=== PATIENT | male | born 1950 | race Caucasian/White ===

== ENCOUNTER 2017-11-13 21:13 | Observation (INO) | payer OTHER, BC ==
--- NOTE | 2017-11-13 21:20 | EDPHY ---
H & P Source: Patient Exam Limitations: No limitations - Family History Significant Family History: No pertinent family hx Time Seen by Provider: 11/13/17 21:19 HPI/ROS: CHIEF COMPLAINT: Acute right flank pain HISTORY OF PRESENT ILLNESS: The patient presents to the ED with complaints of acute right flank pain, nausea and vomiting. The patient's symptoms began several hours prior to arrival. The patient does report a remote history of nephrolithiasis several decades ago. The patient does have a history of diabetes. The patient denies any recent travel, antibiotic use or surgery. He has a history of BPH. He has a history of an inguinal hernia surgery approximately a year ago. He has remote history of appendectomy. The patient denies any fever, cough or congestion. The patient is currently visiting from [place] of [place] on a business trip. REVIEW OF SYSTEMS: A comprehensive 10 point review of systems is otherwise negative aside from elements mentioned in the history of present illness. (Andrew Dennison) - Medical/Surgical History PMH: Past medical history: Enlarged prostate, diabetes, inguinal hernia, appendectomy (Andrew Dennison) - Physical Exam Exam: General Appearance: Alert, mild discomfort Eyes: Pupils equal and round no pallor or injection ENT, Mouth: Mucous membranes moist Respiratory: There are no retractions, lungs are clear to auscultation Cardiovascular: Regular rate and rhythm Gastrointestinal: Abdomen is soft and nontender, no masses, bowel sounds normal Back: Right CVA tenderness Neurological: 5/5 strength all 4 extremities Skin: Warm and dry, no rashes Musculoskeletal: Neck is supple nontender Extremities: symmetrical, full range of motion (Andrew Dennison) Constitutional: Initial Vital Signs Temperature (C) 36.5 C 11/13/17 21:30 Heart Rate 65 11/13/17 21:30 Respiratory Rate 18 11/13/17 21:30 Blood Pressure 157/108 H 11/13/17 21:30 O2 Sat (%) 94 11/13/17 21:30 O2 Delivery Mode Room Air Allergies/Adverse Reactions: iodine Allergy (Verified 11/13/17 21:39) shellfish derived [shrimp] Allergy (Verified 11/13/17 21:39) sunflower seed Allergy (Verified 11/13/17 21:39) Home Medications: Medication Instructions Recorded Lisa Allergy 11/13/17 Aspirin 11/13/17 Atorvastatin Calcium 11/13/17 Epipen 0.3 MG 11/13/17 FENOFIBRATE 11/13/17 Finasteride 11/13/17 Fluticasone Propionate 11/13/17 Januvia 100 MG (*) 11/13/17 Omeprazole 20 mg PO 11/13/17 Tamsulosin HCl 11/13/17 Telmisartan 11/13/17 Vitamin D2 11/13/17 metFORMIN HCL [Metformin HCl ER] 1,000 mg PO 11/13/17 Medical Decision Making - Diagnostics Imaging Results: Imaging Impressions Abdomen/Pelvis CT 11/13/17 21:23 Impression: 1. Nonobstructive left nephrolithiasis. 2. There is a 2 mm stone in the posterior right urinary bladder just beyond the UVJ, with evidence of recent passage and mild upstream ureteral dilatation/ pelvocaliectasis. 3. Small hiatal hernia. 4. Mild hepatomegaly with steatosis. 5. Mild uncomplicated sigmoid colon diverticulosis. Attention: This CT examination is specifically designed to evaluate patients who are clinically suspected of having acute obstructive uropathy. This examination does not use radiographic contrast, and as such, provides only a limited evaluation of the abdomen, pelvis, and retroperitoneum. If there is further clinical suspicion for pathological conditions other than obstructive uropathy, a complete CT evaluation of the abdomen and pelvis utilizing intravenous, oral, and rectal contrast should be considered. Findings were discussed with Andrew Dennison MD at 23:14, on 11/13/2017. ED Course/Re-evaluation: The patient presents the ED with acute right flank pain. The patient had an IV established. His i-STAT demonstrates a creatinine of 1.4. The patient received 30 mg of IV Toradol for presumed ureterolithiasis. The patient was taken for CT scan of the abdomen pelvis which demonstrates a 2 mm distal right ureteral stone with associated hydronephrosis. Re-evaluated the patient at 11:20 p.m.. He currently is complaining of 4/10 pain which is radiating to his right testicle now. The patient received Flomax and IV narcotic medications. Urinalysis is currently pending. The patient will be turned over to Dr. Magallanes at shift change pending reassessment. I am hopeful the patient will be able to be discharged back to his hotel room 1 3 achieve adequate analgesia. If not, the patient will be admitted to the hospital for observation. (Andrew Dennison) 0125: I did go re-evaluate the patient this time. He did vomit 1 time going to the bathroom. I have ordered him a 2nd L fluid, 6.25 mg IV Phenergan and 0.5 mg of IV Dilaudid for some ongoing pain. He does in fact have a kidney stone. He has not urinated. Will obtain a bladder scan to see how much urine he has. Additionally he is from out of town and does not live here given his ongoing pain, vomiting he will be admitted for IV hydration and symptom control and follow-up urinalysis. I will ask the hospitalist to admit him. The patient would prefer being admitted. 0133: spoke with Dr. Pressley agrees to admit. (Aniket Magallanes) Differential Diagnosis: Differential diagnosis considered includes nephrolithiasis, ureterolithiasis, pyelonephritis, renal failure, myofascial strain, abdominal aortic aneurysm ( Andrew Dennison) - Data Points Laboratory Results: Laboratory Results 11/13/17 21:00 11/13/17 21:00 11/13/17 11/13/17 11/13/17 21:32 21:00 21:00 WBC 6.82 10^3/uL 10^3/uL (3.80-9.50) RBC 5.65 10^6/uL 10^6/uL (4.40-6.38) Hgb 15.6 g/dL g/dL (13.7-17.5) POC Hgb 15.6 gm/dL gm/dL (13.7-17.5) Hct 45.5 % % (40.0-51.0) POC Hct 46 % % (40-51) MCV 80.5 fL L fL (81.5-99.8) MCH 27.6 pg L pg (27.9-34.1) MCHC 34.3 g/dL g/dL (32.4-36.7) RDW 13.1 % % (11.5-15.2) Plt Count 238 10^3/uL 10^3/uL (150-400) MPV 12.4 fL H fL (8.7-11.7) Neut % (Auto) 57.5 % % (39.3-74.2) Lymph % (Auto) 29.6 % % (15.0-45.0) [place] % (Auto) 9.5 % % (4.5-13.0) Eos % (Auto) 2.2 % % (0.6-7.6) Baso % (Auto) 0.9 % % (0.3-1.7) Nucleat RBC Rel Count 0.0 % % (0.0-0.2) Absolute Neuts (auto) 3.92 10^3/uL 10^3/uL (1.70-6.50) Absolute Lymphs (auto) 2.02 10^3/uL 10^3/uL (1.00-3.00) Absolute Monos (auto) 0.65 10^3/uL 10^3/uL (0.30-0.80) Absolute Eos (auto) 0.15 10^3/uL 10^3/uL (0.03-0.40) Absolute Basos (auto) 0.06 10^3/uL 10^3/uL (0.02-0.10) Absolute Nucleated RBC 0.00 10^3/uL 10^3/uL (0-0.01) Immature Gran % 0.3 % % (0.0-1.1) Immature Gran # 0.02 10^3/uL 10^3/uL (0.00-0.10) POC Sodium 141 mEq/L mEq/L (135-145) Sodium 137 mEq/L mEq/L (135-145) POC Potassium 4.3 mEq/L mEq/L (3.3-5.0) Potassium 4.7 mEq/L mEq/L (3.5-5.2) POC Chloride 104 mEq/L mEq/L (97-110) Chloride 104 mEq/L mEq/L (97-110) Carbon Dioxide 21 mEq/l L mEq/l (22-31) Anion Gap 12 mEq/L mEq/L (8-16) POC BUN 20 mg/dL mg/dL (7-23) BUN 18 mg/dL mg/dL (7-23) Creatinine 1.3 mg/dL mg/dL (0.7-1.3) POC Creatinine 1.4 mg/dL H mg/dL (0.7-1.3) Estimated GFR 55 Glucose 189 mg/dL H mg/dL (70-100) POC Glucose 214 mg/dL H mg/dL (70-100) Calcium 9.6 mg/dL mg/dL (8.5-10.4) Medications Given: Discontinued Medications Hydromorphone HCl (Dilaudid) 0.5 mg IVP EDNOW ONE Stop: 11/13/17 23:21 Last Admin: 11/13/17 23:26 Dose: 0.5 mg Hydromorphone HCl (Dilaudid) 0.5 mg IVP EDNOW ONE Stop: 11/14/17 01:25 Last Admin: 11/14/17 01:30 Dose: 0.5 mg Sodium Chloride (Ns) 500 mls @ 1,500 mls/hr IV ONCE ONE Stop: 11/14/17 00:36 Last Admin: 11/14/17 00:18 Dose: 500 mls Sodium Chloride (Ns) 1,000 mls @ 0 mls/hr IV ONCE ONE PRN Reason: Wide Open Stop: 11/14/17 01:20 Last Admin: 11/14/17 01:27 Dose: 1,000 mls Ketorolac Tromethamine (Toradol) 30 mg IVP EDNOW ONE Stop: 11/13/17 21:36 Last Admin: 11/13/17 21:48 Dose: 30 mg Ondansetron HCl (Zofran) 4 mg IVP EDNOW ONE Stop: 11/13/17 21:48 Last Admin: 11/13/17 21:48 Dose: 4 mg Ondansetron HCl (Zofran) 4 mg IVP EDNOW ONE Stop: 11/13/17 23:27 Last Admin: 11/13/17 23:28 Dose: 4 mg Promethazine HCl (Phenergan) 6.25 mg IVP ONCE ONE Stop: 11/14/17 01:20 Last Admin: 11/14/17 01:28 Dose: 6.25 mg Tamsulosin HCl (Flomax) 0.4 mg PO EDNOW ONE Stop: 11/13/17 23:17 Last Admin: 11/13/17 23:22 Dose: 0.4 mg Point of Care Test Results: 11/13/17 21:32 POC Sodium 141 POC Potassium 4.3 POC Chloride 104 POC BUN 20 POC Creatinine 1.4 H POC Glucose 214 H Departure - Departure Disposition: [facility] Clinical Impression: Calculus of right kidney Condition: Good Referrals: Patient,NotPresent [Unknown] - As per Instructions
[2017-11-13] MEDS ORDERED: KETOROLAC 30 MG/1 ML SDV IVP ONE (21:35)
[2017-11-13] MEDS ORDERED: ONDANSETRON 4 MG/2 ML VIAL ONE (21:42)
[2017-11-13] MEDS ORDERED: ONDANSETRON 4 MG/2 ML VIAL IVP ONE ×2 (21:47→23:26)
[2017-11-13 22:13] LABS: PLATELET COUNT 238 10^3/uL (150-400)
[2017-11-13] MEDS ORDERED: TAMSULOSIN HCL 0.4 MG CAP PO ONE (23:16)
[2017-11-13] MEDS ORDERED: HYDROmorphONE/DILAUDID 2 MG/ML INJ IVP ONE (23:20)
[2017-11-14] MEDS ORDERED: NS 500 ML IV ONE (00:17)
[2017-11-14] MEDS ORDERED: PROMETHAZINE HCL 25 MG/ML INJ IVP ONE (01:19)
[2017-11-14] MEDS ORDERED: NS 1,000 ML IV ONE (01:19)
[2017-11-14] MEDS ORDERED: HYDROmorphONE/DILAUDID 2 MG/ML INJ IVP ONE (01:24)
[2017-11-14] MEDS ORDERED: LORazepam 2 MG/ML INJ IVP PRN (02:36)
[2017-11-14] MEDS ORDERED: HYDROmorphONE/DILAUDID 2 MG/ML INJ IVP PRN (02:36)
[2017-11-14] MEDS ORDERED: ONDANSETRON 4 MG/2 ML VIAL IVP PRN (02:36)
[2017-11-14] MEDS ORDERED: ACETAMINOPHEN 325 MG TAB PO PRN (02:36)
[2017-11-14] MEDS ORDERED: HYDROCODONE/APAP 5/325 TAB PO PRN (02:36)
[2017-11-14] MEDS ORDERED: NS 1,000 ML IV SCH (02:45)
[2017-11-14 08:49] VITALS: BP 112/59
--- NOTE | 2017-11-14 09:15 | PDGENHP ---
History and Physical - Chief Complaint Right flank pain, nausea vomiting - History of Present Illness Source-patient provides history and appears reliable. EMR was reviewed and case discussed with ED provider. HPI - 67-year-old male patient presents emergency department with complaints of severe sudden onset right-sided flank pain with nausea and vomiting. Patient denies any hematemesis. He does have a remote history of nephrolithiasis approximately 20 years ago. Previous stones were never evaluated for type. Patient recently traveled from [place] to [place] and since that time has not had a significant maintenance of oral hydration. Patient reports that during his episodes of severe pain he had associated sweating and chills. Patient denies any history of dysuria hematuria. Patient does have a history significant for BPH for which he is taking tamsulosin and for S dried. He has occasional urinary retention decreased stream and frequency. Patient states he has not had any urine output since becoming ill and despite almost 2 L of IV fluid has not yet felt the urge to go to the restroom. Bladder scan in the emergency department revealed retention of only 150 mL. Patient denies any respiratory symptoms. No diarrhea. In the emergency department patient had significant pain that he has felt short of breath related to pain. He was noted to be hypoxic to 86% but he felt he was not taking in deep breaths due to pain. Since that time patient has been on room air saturating greater than 90% . Currently patient denies any flank pain. No further episodes of nausea vomiting. History Information - Allergies/Home Medication List Allergies/Adverse Reactions: iodine Allergy (Verified 11/13/17 21:39) shellfish derived [shrimp] Allergy (Verified 11/13/17 21:39) sunflower seed Allergy (Verified 11/13/17 21:39) Home Medications: Lisa Allergy 11/13/17 [Last Taken Unknown] Aspirin 11/13/17 [Last Taken Unknown] Atorvastatin Calcium 11/13/17 [Last Taken Unknown] Epipen 0.3 MG 11/13/17 [Last Taken Unknown] FENOFIBRATE 11/13/17 [Last Taken Unknown] Finasteride 11/13/17 [Last Taken Unknown] Fluticasone Propionate 11/13/17 [Last Taken Unknown] Januvia 100 MG (*) 11/13/17 [Last Taken Unknown] Omeprazole 20 mg PO 11/13/17 [Last Taken Unknown] Tamsulosin HCl 11/13/17 [Last Taken Unknown] Telmisartan 11/13/17 [Last Taken Unknown] Vitamin D2 11/13/17 [Last Taken Unknown] metFORMIN HCL [Metformin HCl ER] 1,000 mg PO 11/13/17 [Last Taken Unknown] I have personally reviewed and updated: family history, medical history, social history, surgical history - Past Medical History diabetes type 2 Additional medical history: BPH, HLD, HTN, nephrolithiasis - Surgical History Additional surgical history: Inguinal hernia repair, appendectomy, sinus surgery , arthroscopic knee surgery - Family History Additional family history: No family history of nephrolithiasis. Paternal grandfather with diabetes. - Social History Smoking Status: Never smoked Alcohol Use: None Drug Use: None Additional social history: Patient is and lives in [place] he is visiting [facility]. Cor status-full Review of Systems Review of Systems: ROS: 10pt was reviewed & negative except for what was stated in HPI & below Constitutional: Reports: chills, other (Sweats with severe pain.). Denies: fever, recent illness EENMT: Reports: other (No nasal discharge). Denies: nose congestion, sore throat Cardiac: Reports: no symptoms Respiratory: Reports: shortness of breath (Shortness of breath with severe flank pain.) Gastrointestinal: Reports: vomitting, nausea, other (No hematemesis). Denies: abdominal pain, diarrhea Genitourinary: Reports: frequency. Denies: dysuria, hematuria Muscolosketal: Reports: other (Right flank pain now resolved.) Skin: Reports: no symptoms. Denies: rash Neurological: Reports: other (Patient with peripheral neuropathy in both feet.) . Denies: anxiety, depressed, weakness Hematologic/Lymphatic: Reports: no symptoms Physical Exam Physical Exam: Selected Entries 11/13/17 21:30 Heart Rate 65 Respiratory 18 Rate O2 Sat (%) 94 Temperature (C) 36.5 C Blood Pressure 157/108 H Mean Arterial 124 H Pressure (MAP) O2 Delivery Room Air Mode Temperature Oral Source Temp Pulse Resp BP Pulse Ox 36.8 C 86 14 112/59 L 94 11/14/17 08:00 11/14/17 08:00 11/14/17 08:00 11/14/17 08:00 11/14/17 08:00 Constitutional: no apparent distress, not in pain, other (NAD. Pleasant obese gentleman is lying quietly in bed asleep. He wakes easily and cooperative. Does not appear to be uncomfortable with movement.) Eyes: PERRL, anicteric sclera, EOMI, No scleral injection Ears, Nose, Mouth, Throat: moist mucous membranes, other (No nasal discharge), No poor dentition Cardiovascular: regular rate and rhythym, no murmur, rub, or gallop, edema (1+ bilateral lower extremity edema..), No systolic murmur Peripheral Pulses: 1+: dorsalis-pedis (R), dorsalis-pedis (L) Respiratory: no respiratory distress, no rales or rhonchi, clear to auscultation Gastrointestinal: normoactive bowel sounds, soft, non-tender abdomen, no palpable masses, other (Obese abdomen), No tenderness Genitourinary: no bladder tenderness, No gallardo in urethra Skin: warm, normal color, no rashes or abrasions, No rash Musculoskeletal: full muscle strength, other (Sits up independently.) Neurologic: AAOx3, other (Moves all extremities grossly nonfocal.), No facial droop Psychiatric: interacting appropriately, not anxious, not encephalopathic, thought process linear Lab Data & Imaging Review 11/13/17 21:00 11/13/17 21:00 WBC 6.82 10^3/uL (3.80-9.50) 11/13/17 21:00 RBC 5.65 10^6/uL (4.40-6.38) 11/13/17 21:00 Hgb 15.6 g/dL (13.7-17.5) 11/13/17 21:00 POC Hgb 15.6 gm/dL (13.7-17.5) 11/13/17 21:32 Hct 45.5 % (40.0-51.0) 11/13/17 21:00 POC Hct 46 % (40-51) 11/13/17 21:32 MCV 80.5 fL (81.5-99.8) L 11/13/17 21:00 MCH 27.6 pg (27.9-34.1) L 11/13/17 21:00 MCHC 34.3 g/dL (32.4-36.7) 11/13/17 21:00 RDW 13.1 % (11.5-15.2) 11/13/17 21:00 Plt Count 238 10^3/uL (150-400) 11/13/17 21:00 MPV 12.4 fL (8.7-11.7) H 11/13/17 21:00 Neut % (Auto) 57.5 % (39.3-74.2) 11/13/17 21:00 Lymph % (Auto) 29.6 % (15.0-45.0) 11/13/17 21:00 [place] % (Auto) 9.5 % (4.5-13.0) 11/13/17 21:00 Eos % (Auto) 2.2 % (0.6-7.6) 11/13/17 21:00 Baso % (Auto) 0.9 % (0.3-1.7) 11/13/17 21:00 Nucleat RBC Rel Count 0.0 % (0.0-0.2) 11/13/17 21:00 Absolute Neuts (auto) 3.92 10^3/uL (1.70-6.50) 11/13/17 21:00 Absolute Lymphs (auto) 2.02 10^3/uL (1.00-3.00) 11/13/17 21:00 Absolute Monos (auto) 0.65 10^3/uL (0.30-0.80) 11/13/17 21:00 Absolute Eos (auto) 0.15 10^3/uL (0.03-0.40) 11/13/17 21:00 Absolute Basos (auto) 0.06 10^3/uL (0.02-0.10) 11/13/17 21:00 Absolute Nucleated RBC 0.00 10^3/uL (0-0.01) 11/13/17 21:00 Immature Gran % 0.3 % (0.0-1.1) 11/13/17 21:00 Immature Gran # 0.02 10^3/uL (0.00-0.10) 11/13/17 21:00 POC Sodium 141 mEq/L (135-145) 11/13/17 21:32 Sodium 137 mEq/L (135-145) 11/13/17 21:00 POC Potassium 4.3 mEq/L (3.3-5.0) 11/13/17 21:32 Potassium 4.7 mEq/L (3.5-5.2) 11/13/17 21:00 POC Chloride 104 mEq/L (97-110) 11/13/17 21:32 Chloride 104 mEq/L (97-110) 11/13/17 21:00 Carbon Dioxide 21 mEq/l (22-31) L 11/13/17 21:00 Anion Gap 12 mEq/L (8-16) 11/13/17 21:00 POC BUN 20 mg/dL (7-23) 11/13/17 21:32 BUN 18 mg/dL (7-23) 11/13/17 21:00 Creatinine 1.3 mg/dL (0.7-1.3) 11/13/17 21:00 POC Creatinine 1.4 mg/dL (0.7-1.3) H 11/13/17 21:32 Estimated GFR 55 11/13/17 21:00 Glucose 189 mg/dL (70-100) H 11/13/17 21:00 POC Glucose 214 mg/dL (70-100) H 11/13/17 21:32 Calcium 9.6 mg/dL (8.5-10.4) 11/13/17 21:00 Imaging Review: CT Scan of the Urinary Tract (Abdomen and Pelvis Without Contrast) Clinical Indications: 67-year-old male with right flank pain, nausea, and vomiting since 6:30 today with a history of kidney stones. Evaluate for nephrolithiasis or obstructive uropathy. Technique: Neither oral, retrograde rectal, nor IV contrast was administered. A multidetector unenhanced helical CT scan was obtained from the lung bases inferiorly through the proximal femora, with images reformatted at 5.00 and 1.25 mm increments, and reviewed in soft tissue, lung, liver, and bone windows. Parasagittal and paracoronal reconstructed images are reviewed on the workstation. The DFOV is 44.5 cm. Dose reduction techniques were utilized. Comparison Study: None available. Findings: Unenhanced CT Scan of the Abdomen: The lung bases are notable for some minor dependent subsegmental atelectasis. There is some linear scar versus subsegmental atelectasis in the inferomedial right middle lobe. There is a mild degree of left ventricular hypertrophy, and there is trace pericardial thickening versus fluid along the anterior inferior recess. There is a small hiatal hernia present. The liver is mildly enlarged, measuring 19.5 cm in cephalocaudal diameter, and there is mild diminished attenuation consistent with steatosis. There are no hepatic, cholecystic, choledochal, pancreatic, splenic, adrenal, right renal, or ureteral calculi. There is a nonobstructive 2 mm calculus in the posterior midpole of the left kidney. There is perinephric stranding seen bilaterally. There is mild right ureteral dilatation and mild pelvocaliectasis and evidence of a 2 mm stone in the posterior right urinary bladder, just beyond the ureterovesical junction. The abdominal aorta is normal in size, and tapers normally. The IVC is normal in caliber. There is no ascites. The CT appearance of small and large bowel is notable for a few scattered sigmoid colon diverticula. There is an elevated BMI. Unenhanced CT Scan of the Pelvis: There are no pelvic masses identified. There is no free fluid. The urinary bladder is distended, and there is the aforementioned tiny urinary bladder calculus seen on series 3, image 301. The prostate gland is mildly enlarged, measuring 4.4 x 5.4 cm, and there is a normal appearance of the seminal vesicles. There is no adenopathy. Osseous Structures: There is advanced degenerative disk space narrowing at L2- L3 with vacuum disk phenomenon and mild L3-L4 disk space narrowing. There are small ventral traction spurs at several levels. There is no aggressive osseous lesion. There is some degenerative features of the sacroiliac joints. Impression: 1. Nonobstructive left nephrolithiasis. 2. There is a 2 mm stone in the posterior right urinary bladder just beyond the UVJ, with evidence of recent passage and mild upstream ureteral dilatation/pelvocaliectasis. 3. Small hiatal hernia. 4. Mild hepatomegaly with steatosis. 5. Mild uncomplicated sigmoid colon diverticulosis. Attention: This CT examination is specifically designed to evaluate patients who are clinically suspected of having acute obstructive uropathy. This examination does not use radiographic contrast , and as such, provides only a limited evaluation of the abdomen, pelvis, and retroperitoneum. If there is further clinical suspicion for pathological conditions other than obstructive uropathy, a complete CT evaluation of the abdomen and pelvis utilizing intravenous, oral, and rectal contrast should be considered. Findings were discussed with Andrew Dennison MD at 23:14, on 11/13/2017. Visualized and Interpreted imaging results: Yes Assessment & Plan Assessment: 67-year-old male with history of diabetes type 2, BPH, HLD, HTN, nephrolithiasis who presents with sudden onset of right-sided flank pain and intractable nausea vomiting. Nephrolithiasis - patient with noted to have on left nonocclusive stone at the UPJ as well as a stone in the bladder with associated signs of likely recent passage with some mild hydronephrosis on the right. Patient has appears to have passed a stone. Currently his symptoms are quite improved he is no longer complaining of any flank pain unknown further nausea or vomiting since arrival to the medical floor. Discussed results with the patient anticipate that he should be able to go home later this morning without any further interventions. Have requested patient strain his urine and collect the stone if he should past this and he may take this stone to his PCP for further evaluation and subsequently further recommendations and guidance on dietary changes etc. Encouraged increased oral hydration particularly at elevation. Currently however patient has not yet voided. He does have a history significant for BPH. He status post approximately 2 L of IV fluid will plan to continue patient 's tamsulosin as well as finasteride. Will continue to monitor patient on until he has voided independently. If patient continues to struggle on will plan to do a bladder scan and consider straight cath versus of Gallardo placement if absolutely needed. Chronic medical problems BPH - as noted above continue finasteride and tamsulosin Dm 2 - resume patient's home medications metformin and Januvia.. Hyperlipidemia - resume statin at discharge HTN - resume patient's ARB Obesity BMI 33.6 - dietary and lifestyle modifications. Incidental imaging findings Diverticulosis - recommended increasing fiber diet Hiatal hernia - patient without any current reflux symptoms. Resume PPI at discharge. follow-up with PCP. FEN-continue IV fluid hydration. Status post bolus in the ED. Electrolyte replacement if needed. Diet as tolerated. PPX-SCDs. Anticipate short hospital stay. Early ambulation and anticipated discharge hold off on anticoagulation unless patient should stay additional day. Cor status-full Disposition-anticipate patient should be able to discharge her later today if he is able to successfully void independently and has no further nausea vomiting flank pain.
--- NOTE | 2017-11-14 10:25 | GDS ---
[f rep st] DISCHARGE SUMMARY ALL DIAGNOSES: 1. Renal colic. 2. Nephrolithiasis/ureterolithiasis. 3. History of BPH. 4. Mild urinary retention. 5. Uncontrolled pain, as well as vomiting. 6. Mild acute kidney injury. 7. Diabetes mellitus. 8. Hypertension. HOSPITAL COURSE: A 67-year-old man who lives in [place], who is visiting, doing some work at the [employer]. Presented to the emergency department with nausea, vomiting, and uncontrolled renal colic p ain. CAT scan showed 2 mm stone which was in the bladder, with evidence of recent passage. He recei aston some IV narcotics and had ongoing pain, thus he was admitted. When I am seeing him, he has not r eceived narcotics for 7-1/2 hours and feels significantly better. He is urinating per his normal rou artur, he does have BPH, which makes it slightly different. He is eating and not having any more vomi ting. He feels ready for discharge. I have instructed him to take the strainer which we will provid e him, save his stone, provide this to his urologist in [place]. He is comfortable with this. I hav e given him a short prescription for [place] in case he has any lingering renal colic pain. He is disc harged in stable condition. He should follow up with his urologist in [place]. /[id number]/MODL
[2017-11-14] MEDS ORDERED: TAMSULOSIN HCL 0.4 MG CAP PO SCH (21:00)
== END 2017-11-14 11:30 | disposition home or self-care (01) ==
LOC: F2W 11-14 02:28
PROVIDERS: ADMIT Family Medicine; ATTEND Student in an Organized Health Care Education/Training Program
DX: N20.2 Calculus of kidney with calculus of ureter (principal); N23 Unspecified renal colic; R11.2 Nausea with vomiting, unspecified; N40.1 Benign prostatic hyperplasia with lower urinary tract symptoms; R33.9 Retention of urine, unspecified; N17.9 Acute kidney failure, unspecified; E11.9 Type 2 diabetes mellitus without complications; I10 Essential (primary) hypertension; K44.9 Diaphragmatic hernia without obstruction or gangrene; E78.5 Hyperlipidemia, unspecified; E66.9 Obesity, unspecified; Z68.33 Body mass index [BMI] 33.0-33.9, adult; Z87.442 Personal history of urinary calculi
CPT/HCPCS: 74176; 96361; 96374; 96375; 96376; 99285; G0378; J1170; J1642; J1885; J2405; J2550; 82947-QW